=== PATIENT | male | born 1960 | race Caucasian/White ===

== ENCOUNTER 2018-08-02 08:34 | Inpatient (IN) | payer OTHER, SELFPAY ==
[2018-07-25 13:56] VITALS: BMI 33.0
[2018-08-02] VITALS (29 sets, daily range): BP systolic 114–156; BP diastolic 54–105; PULSE 75–89; RESP 9–22; TEMP 36.2–37.3; O2SAT 91–98; BMI 33.4
--- NOTE | 2018-08-02 | DI.RAD.S_ITS ---
PROCEDURE: XR LUMBAR SPINE 2-3V INDICATIONS: L5-S1 HARDWARE INSERTION TECHNIQUE: 2 views of the lumbar spine were acquired. COMPARISON: None. FINDINGS: Bones: L5-S1 bilateral transverse screws and vertical fixation rods are present with interbody disc cage prosthesis centrally positioned at L5-S1 also. Soft tissues: Overlying bowel gas pattern is normal. No suspicious soft tissue calcifications. IMPRESSION: Normal alignment established after posterior fusion and interbody disc listhesis placement L5-S1. Dictated by: Fabian Pringle M.D. on 08/02/2018 at 13:57 Approved by: Fabian Pringle M.D. on 08/02/2018 at 13:57
[2018-08-02] MEDS: LACTATED RINGERS 1,000 ML 42 ML IV ×2 (09:30→12:26)
--- NOTE | 2018-08-02 09:58 | P.HP_ITS ---
History of Present Illness Date Patient Seen: 08/02/18 Time Patient Seen: 09:53 Chief complaint: [id number] Narrative: 58-year-old male with low back and right leg pain. He has a history of lumbar laminectomy in 2007 and 2009. He was lifting a file cabinet in October of 2017 and all the symptoms return. He has been through physical therapy as well as epidural steroid injection and chronic pain medication. Recently his pain has been going up so much that he switch from Vicodin over to Percocet. Pain in the leg is in the right buttock and posterior thigh. Constant numbness in the lateral leg and foot since from before his last surgery. 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 The buttock pain is worse than the back pain. Patient History Medical History Anxiety (Acute) Arthritis (Acute) Asthma (Acute) BPH (benign prostatic hyperplasia) (Acute) Bladder outlet obstruction (Acute ~09/2017) Chronic bronchitis (Acute) DJD (degenerative joint disease) (Acute) Depression (Acute) GERD (gastroesophageal reflux disease) (Acute) HLD (hyperlipidemia) (Acute) HTN (hypertension) (Acute) Hiatal hernia (Acute ~1993) Insomnia (Acute) HARLAN on CPAP (Acute) Paralysis, diaphragm (Acute ~1993) Psoriasis (Acute) Sciatica (Acute) Testosterone deficiency (Acute) Vitamin D deficiency (Acute) Surgical History History of tonsillectomy and adenoidectomy (Acute) Hx of appendectomy (Acute) Hx of bilateral inguinal hernia repair (Acute ~2016) Hx of laminectomy (Acute) Hx of transurethral resection of prostate (Acute ~2016) Social History household members: spouse and children Smoking Status: Never smoker alcohol intake: current Family & Social History Social History: household members spouse,children Prior Living Arrangements House Safety & Behavioral: Feels Safe in Current Yes Environment Been Physically Hurt or No Threatened By a Person Suicidal Ideation Description None Suicide Plan Description No Plan Tobacco & Substance use: Smoking Status Never smoker alcohol intake current alcohol intake frequency a few times a week Substance Use Type does not use Meds Home Medications Medication Instructions Recorded Confirmed Type albuterol sulfate 2 puff INHALATION QID PRN 07/25/18 08/02/18 History alprazolam 0.25 mg PO DAILY PRN 07/25/18 08/02/18 History amlodipine 10 mg PO BEDTIME 07/25/18 08/02/18 History atorvastatin 40 mg PO BEDTIME 07/25/18 08/02/18 History budesonide-formoterol [Symbicort] 2 puff INHALATION PRN PRN 07/25/18 08/02/18 History bupropion HCl 150 mg PO BID 07/25/18 08/02/18 History cholecalciferol (vitamin D3) 50,000 unit PO DAILY 07/25/18 08/02/18 History [Vitamin D3] clonidine HCl 0.1 mg PO BID 07/25/18 08/02/18 History gabapentin 300 mg PO TID 07/25/18 08/02/18 History hydrocodone-acetaminophen 2 tab PO Q4-6H PRN 07/25/18 08/02/18 History ibuprofen 600 mg PO BID-TID PRN 07/25/18 08/02/18 History losartan 100 mg PO DAILY 07/25/18 08/02/18 History meloxicam 15 mg PO DAILY 07/25/18 08/02/18 History omeprazole 40 mg PO BID 07/25/18 08/02/18 History tamsulosin 0.4 mg PO BEDTIME 07/25/18 08/02/18 History zolpidem 10 mg PO BEDTIME PRN 07/25/18 08/02/18 History Allergies Allergy/AdvReac Type Severity Reaction Status Date / Time Sulfa (Sulfonamide Allergy Intermediate Hives Verified 07/25/18 14:05 Antibiotics) levofloxacin [From Levaquin] AdvReac Severe Heart Verified 07/25/18 14:05 racing, chest pain prochlorperazine AdvReac Severe Makes me Verified 07/25/18 14:05 [From Compazine] feel like I want to jump out of my skin promethazine [From Phenergan] AdvReac Severe Makes me Verified 07/25/18 14:05 feel like I want to jump out of my skin Review of Systems Cardiovascular Cardiovascular: Denies chest pain Respiratory Respiratory: Denies cough Exam Vital Signs (past 8 hours): - 08/02/18 09:04 Temperature 97.2 F L Pulse Rate 80 Respiratory Rate 15 Blood Pressure 137/91 H Pulse Oximetry 97 Oxygen Delivery Method Room Air Const Orientation: alert and oriented x3 Resp Auscultation: clear to auscultation bilaterally Cardio Rate: regular rate Rhythm: regular rhythm Back/Spine/Pelvis Other: Well-healed incision. 5/5 motor both lower extremities. Decreased sensation lateral right leg and foot. Positive straight leg raise maneuver on the right. Tender in the bilateral lumbar paraspinals and right gluteals. Objective Imaging Lumbar MRI: My impression: Lumbar MRI from 11/25/2017 shows open laminectomy at L4-5. L5-S1 has a previous right-sided laminectomy. Small foraminal disc bulge with moderate to severe right and moderate left foraminal stenosis. Assessment & Plan Assessment & Plan narrative: Lumbar stenosis with radiculopathy with a history of previous laminectomy. He has failed conservative management and we are taking him to the operating room today for revision foraminotomy at L5-S1 on the right with instrumented fusion. All questions have been answered. Risks and benefits have been discussed and appropriate consent obtained.
--- NOTE | 2018-08-02 09:58 | PM.PREOP ---
Pre-operative Note Interval Note History & Physical reviewed/Exam performed by Physician: Yes Changes to H&P: No
[2018-08-02] MEDS: CEFAZOLIN 2 GM/100 ML FROZ.PIGGY IV ×2 (10:27→17:57)
--- NOTE | 2018-08-02 11:13 | SUR.OPER ---
Prone on spine table, head in foam head support, padded chest and pelvic supports, gel pad at knees, lower legs supported by pillows; nipples, genitalia and toes free of pressure, arms secured on foam padded arm boards at <90 degrees abduction. Tape over blanket at thigh secured to table.
[2018-08-02] MEDS: VANCOMYCIN 1,000 MG VIAL 1000 MG TOP (11:19)
[2018-08-02] MEDS: SODIUM CHLORIDE 0.9% 1,000 ML, GENTAMICIN 80 MG IRR (11:20)
[2018-08-02] MEDS: BUPIVACAINE 0.5% (PF) 4 ML, MORPHINE-PF 4 MG, BUTORPHANOL 1 MG, fentaNYL 100 MCG INJ (11:20)
[2018-08-02] MEDS: THROMBIN (RECOMBINANT) 5,000 UNIT VIAL 5000 UNIT TOP (11:20)
--- NOTE | 2018-08-02 12:59 | P.OP_ITS ---
Operative Date/Time/Diagnoses Date of procedure: 08/02/18 Time of procedure: 12:55 Pre-op diagnosis: Lumbar stenosis with radiculopathy History of lumbar laminectomy Post-op diagnosis: same Procedure & Clinicians Procedure: L5S1 TLIF (post/post innerbody fusion) with cage L5 and S1 screws Iliac crest bone graft aspirate. Revision laminotomy L5-S1 Use of microscope Placement of epidural catheter Same procedure as scheduled: Yes Indications: [age] year old male with intractable pain from stenosis. They had failed conservative management and requested operative intervention. Risks and benefits of surgery were discussed and appropriate consents were obtained. Surgeon: Jose Elias Kingsley Immigration Consultant: Baylee Dalal Anesthesia Type: General Operative Notes Findings: None Closure Type: primary Specimen(s): none sent Prosthetic devices, grafts, tissues, transplants, or devices: NuVasive MAS Reli ne screws Globus Rise cage Applied: catheter Estimated Blood Loss (mL): 20 Blood products transfused: none Procedure in detail: The patient was brought to the operating room and intubated on the table. A time-out was performed. They were then rolled over to the well- padded Lalo table in the prone position. Preoperative antibiotics were given. The back was prepped and draped in the standard sterile fashion. Using fluoroscopy, a 4 cm longitudinal incision was made to the well-marked right of the midline. We used Bovie to come down to and split the lumbodorsal fascia. Using fluoroscopy and monitoring, we then percutaneously placed Jamshidi needles down the pedicles of L5 and S1 on the right side. These were changed out to guidewires and then we tapped and then placed the NuVasive MAS Reline screw shanks. We then opened up the retractors and used Bovie to clear up the posterolateral gutter as well as medially along the lamina to the scar tissue from the previous laminotomy site. A bur was used to decorticate the transverse process and sacral ala. We brought in the microscope. We carefully cleared the scar tissue away from the bone using a curette. Using a combination of bur and Kerrison rongeurs, a revision laminotomy was performed from the right side at L5-S1. We exposed the central medial canal as well as completely freed up the neural foramen using osteotomes for a facetectomy. This was separate and distinct than a approach for the posterior interbody fusion as this was a revision surgery through scar tissue and hence was much more complex and is a separate and distinct procedure. We then began the TLIF prep. A complete facetectomy was performed on this side at L5-S1. We carefully cleaned up the remainder of the foramen until we could easily retract the exiting root as well as clearing medially below the dura and expose the disc space. The disc was prepped with bipolar and then an annulotomy was performed. We performed a diskectomy using a combination of paddles, jose e, pituitaries, and curettes. We distracted the disc using a paddle and locked the retractor in an open position. We then filled the disc space with Osteocel bone graft. We then placed the globus Rise cage under fluoroscopy and then filled this in with more bone graft. The distraction on the retractor was released to compress down. This completed the posterior interbody fusion portion of the TLIF at L5-S1. We then placed the screw heads, ijeoma, and locked down the set screws. The wound was copiously irrigated. A small stab incision was made over the PSIS. We used a Jamshidi needle to aspirate several mL of bone marrow from the pelvis. This was mixed with the remaining Osteocel and combined with all of the locally harvested bone graft and placed in the posterolateral gutter for the posterior fusion of the TLIF at L5- S1. An epidural catheter was then placed in the spinal canal by carefully depressing the dura and advancing it 6 cm cephalad under the remaining lamina without resistance. The muscle fascia was closed. The catheter was then injected with a solution containing 4 mL of 0.5% Marcaine, 1 mg Stadol, 4 mg Duramorph, and 100 mcg of fentanyl. This was injected without resistance and the catheter was pulled. We then went to the opposite side. Again using fluoroscopy, a 3 cm incision was made and Bovie was used to come down to split the fascia. Using neural monitoring and fluoroscopy, Jamshidi needles were advanced down the pedicles of L5 and S1 on the left side. These were switched over guidewires, tapped, and screws placed. We then placed a ijeoma and locked the set screws on this side. The wound was irrigated. The fascia was closed. Vancomycin powder was placed in the wounds. The superficial and skin were closed. A sterile dressing was placed. The patient was then rolled over extubated and brought to recovery room without complications. Complications: none Condition: stable Disposition: PACU Plan for aftercare: Inpatient. Up with therapy.
[2018-08-02] MEDS: fentaNYL 100 MCG/2 ML INJ 50 MCG IV ×3 (13:37→14:00)
[2018-08-02] MEDS: HYDROMORPHONE 2 MG INJ 0.5 MG IV ×3 (13:41→13:54)
--- NOTE | 2018-08-02 14:25 | SUR.PHASEI ---
Report called to SEVERINO Murphy in ICU. Pt in stable condition, VSS. Pt laying in bed with eyes open and easily responds to voice when spoken to. IV site clear and infusing without difficultly. DRSG observed to be C/D/I. Pt being transferred to floor at this time.
--- NOTE | 2018-08-02 14:43 | SUR.PHASEI ---
pt transferred to icu in stable condition, vss. pt alert and talking to RN during transport. Bedside report given to SEVERINO Koch at that time, no change in pt condition. Transferred care of pt to DIRECTOR PATIENT at that time.
--- NOTE | 2018-08-02 15:12 | PC.NURSE ---
Postop Note Patient arrived from PACU to room 101 via bed at 1440. Pt alert and oriented x3. Oxygen sats 95% on 3L NC. Reports pain 7/10 to back. Dressing to lower back C/D/I. Reports numbness to right toes but states this was present prior to surgery, denies any new numbness. Able to move all extremities, strong pulses. Taking in ice chips without issue. Coronado catheter in place and draining clear yellow urine. Family at bedside. Own walker and CPAP machine in room. Oriented to room and to call light/bed/tv controls. Call light within reach.
[2018-08-02] MEDS: ACETAMINOPHEN 325 MG TABLET 650 MG PO ×2 (15:36→22:26)
[2018-08-02] MEDS: OXYCODONE IR 5 MG TABLET 10 MG PO ×3 (15:36→22:26)
[2018-08-02] MEDS: GABAPENTIN 300 MG CAPSULE PO ×2 (15:37→21:25)
[2018-08-02] MEDS: LACTATED RINGERS 1,000 ML 125 ML IV ×2 (15:39→22:27)
--- NOTE | 2018-08-02 17:16 | PC.NURSE ---
1700 - Pt reports pain 6 of 10, agreeable to attempt to dangle. Educated to spinal precautions. Pt moving well, Able to stand at bedside. Denies lightheadedness or dizziness. Returned to bed and set up for meal. Call light in reach.
[2018-08-02] MEDS: DOCUSATE 100 MG CAPSULE PO (21:25)
[2018-08-02] MEDS: ATORVASTATIN 20 MG TABLET 40 MG PO (21:25)
[2018-08-02] MEDS: SENNOSIDES 8.6 MG TABLET 17.2 MG PO (21:25)
[2018-08-02] MEDS: cloNIDine 0.1 MG TABLET PO (21:26)
[2018-08-02] MEDS: AMLODIPINE 5 MG TABLET 10 MG PO (21:26)
[2018-08-02] MEDS: PANTOPRAZOLE 40 MG TABLET PO (21:26)
[2018-08-02] MEDS: buPROPion SR 150 MG TAB PO (21:26)
[2018-08-02] MEDS: TAMSULOSIN 0.4 MG CAPSULE PO (21:26)
[2018-08-02] MEDS: hydrOXYzine pamoate 25 MG CAPSULE PO (22:26)
[2018-08-03] VITALS (9 sets, daily range): BP systolic 112–119; BP diastolic 58–74; PULSE 75–82; RESP 16–18; TEMP 36.8–37.3; O2SAT 94–98
[2018-08-03] MEDS: CEFAZOLIN 2 GM/100 ML FROZ.PIGGY IV (01:42)
[2018-08-03] MEDS: OXYCODONE IR 5 MG TABLET 10 MG PO ×6 (03:12→20:47)
[2018-08-03] MEDS: diphenhydrAMINE 25 MG TABLET PO (03:12)
[2018-08-03] MEDS: ALPRAZolam 0.25 MG TABLET PO (03:12)
[2018-08-03 04:47] LABS: Hematocrit 42.1 % (41-53); Hemoglobin 14.1 g/dL (13.5-17.5)
[2018-08-03] MEDS: PANTOPRAZOLE 40 MG TABLET PO ×2 (06:10→20:50)
[2018-08-03] MEDS: SODIUM CHLORIDE 0.9% FLUSH 10 ML IV ×2 (06:10→20:51)
--- NOTE | 2018-08-03 08:24 | PM.PNPO.1 ---
Subjective Date Patient Seen: 08/03/18 Time Patient Seen: 08:24 Interval history: He is doing well. Pain is 5/10 across the back. No leg pain. Still some residual numbness in the Righttoes, but they have been that way for years. Exam Vital Signs (past 8 hours): - 08/03/18 03:00 08/03/18 03:26 08/03/18 07:00 Temperature 99.1 F 98.6 F Pulse Rate 75 75 Respiratory Rate 18 16 Blood Pressure 115/58 L 112/73 Pulse Oximetry 95 95 Oxygen Delivery Method Room Air Oxygen Flow Rate 0 Const Orientation: alert and oriented x3 Back/Spine/Pelvis Other: mild drainage. 5/5 motor both lower extremities. Objective Labs Result Diagrams: 08/03/18 04:32 Labs: Laboratory Results - last 24 hr 08/02/18 08/03/18 14:40 04:32 Hgb 14.1 Hct 42.1 Nasal Screen MRSA (PCR) Negative for mrsa Assessment & Plan Post-op Postoperative Procedures Operation Date: 08/02/18 10:15 Actual Procedures Side Surgeon p L5-S1 revision discectomy & intru fusion (TLIF) w/bone graft Right Jose Elias Kingsley MD he is doing well. Mobilize today with physical therapy. Anticipate discharge home tomorrow. Quality VTE Deep Vein Thrombosis/Pulmonary Embolism Present on Admission: No
[2018-08-03] MEDS: buPROPion SR 150 MG TAB PO ×2 (09:09→20:49)
[2018-08-03] MEDS: cloNIDine 0.1 MG TABLET PO ×2 (09:09→20:49)
[2018-08-03] MEDS: LOSARTAN 50 MG TABLET 100 MG PO (09:10)
[2018-08-03] MEDS: hydrOXYzine pamoate 25 MG CAPSULE PO ×3 (09:11→20:48)
[2018-08-03] MEDS: GABAPENTIN 300 MG CAPSULE PO ×3 (09:11→20:50)
[2018-08-03] MEDS: MELOXICAM 7.5 MG TABLET 15 MG PO (09:11)
[2018-08-03] MEDS: DOCUSATE 100 MG CAPSULE PO ×2 (09:11→20:50)
[2018-08-03] MEDS: ERGOCALCIFEROL (VITAMIN D2) 50,000 UNIT CAPSULE 50000 UNIT PO (09:12)
--- NOTE | 2018-08-03 09:12 | CM.DANOTE ---
DCP: Case received, EMR reviewed and met with patient. Introduced self and role. Was able to retrieve baseline information from patient regarding his baseline health. DCP template assessment completed with information currently available. Patient is a 58 year old male who admitted yesterday morning to the care of the surgical team. Payer: confirmed: Pramod Luciano. PCP: Dr. Caleb Huizar, [facility]. Patient came to hospital for surgical procedure. Patient had lumbar laminectomy, L5-S1 post interbody fusion. Patient has had chronic back problems. 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 He stated that he has had back surgeries before. He resides in [facility] with his spouse, Pawel. He has not yet worked with the physical therapy team. P: DCP to continue to follow. Will collaborate with the physical therapy team to see how he does. He should be able to go home when he is medically stable and cleared by the therapy team. Lianet Katz RN/Clinical Radiologist
--- NOTE | 2018-08-03 10:47 | PC.NURSE ---
Transfer Note Patient transferred to room 212 at 1025 via wheelchair. All belongings with patient including glasses and own CPAP machine. Report given to Lisa HAQ. Patient left sitting up in chair with call light in reach.
--- NOTE | 2018-08-03 10:53 | PT.IIE ---
Current Diagnoses Spinal stenosis, lumbar region with neurogenic claudication (08/02/18) Other specified postprocedural states (08/02/18) Surgery Performed Operation Date: 08/02/18 10:15 Actual Procedures p L5-S1 revision discectomy & intru fusion (TLIF) w/bone graft(Right) - Jose Elias Kingsley MD Surgical History (Last Reviewed 08/02/18 @ 09:55 by Jose Elias Kingsley MD) History of tonsillectomy and adenoidectomy (Acute) Hx of appendectomy (Acute) Hx of bilateral inguinal hernia repair (Acute ~2017) Hx of laminectomy (Acute) Hx of transurethral resection of prostate (Acute ~2017) Medical History (Last Reviewed 08/02/18 @ 09:55 by Jose Elias Kingsley MD) Anxiety (Acute) Arthritis (Acute) Asthma (Acute) BPH (benign prostatic hyperplasia) (Acute) Bladder outlet obstruction (Acute ~09/2017) Chronic bronchitis (Acute) DJD (degenerative joint disease) (Acute) Depression (Acute) GERD (gastroesophageal reflux disease) (Acute) HLD (hyperlipidemia) (Acute) HTN (hypertension) (Acute) Hiatal hernia (Acute ~1993) Insomnia (Acute) HARLAN on CPAP (Acute) Paralysis, diaphragm (Acute ~1993) Psoriasis (Acute) Sciatica (Acute) Testosterone deficiency (Acute) Vitamin D deficiency (Acute) Physical Therapy Inpatient Evaluation/Re-Eval M1 PT/OT-IP Prior Functional Status Start: 08/03/18 12:00 Freq: NEEDED Status: Active Protocol: Document 08/03/18 10:53 AB (Rec: 08/03/18 12:10 AB [id number]) Medical Review Prior Functional Status Medical History Reviewed Yes Communication able to make needs known Mobility and Gait pt stated that he is independent with all mobilities and ambulation without AD Social History Household Members spouse family children Living Arrangements House Number of Floors (Floors) Two Floors Number of Stairs To Enter/Railing? 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 PT-IP Current Condition Start: 08/03/18 12:00 Freq: NEEDED Status: Active Protocol: Document 08/03/18 10:53 AB (Rec: 08/03/18 12:10 AB [id number]) Physical Therapy Current Condition Current Condition Evaluation Date 08/03/18 Treatment Diagnosis s/p L5S1 TLIF/revision laminotomy; difficulty in walking Onset Date 08/02/18 Precautions Lumbar Precautions Log Roll No Twisting Limit Bending Lifting Restriction of 10 lbs Gait Belt above Incisional Area M3 PT-IP Subjective Start: 08/03/18 12:00 Freq: NEEDED Status: Active Protocol: Document 08/03/18 10:53 AB (Rec: 08/03/18 12:10 AB [id number]) Subjective Physical Therapy Visit Type Type Initial Evaluation Visit Start Time 10:53 Visit Stop Time 11:30 Total Visit Minutes 37 Number of COMMERCIAL COUNSEL Visits 0 Physical Therapy Visit Comments Patient Comments pt agreeable to do PT Therapy Pain Assessment Pain When Pain Assessed At Rest Pain Present Pain Present Pain Reported Location Back Intensity 9 Scale Used Numeric (1 - 10) Pain Management Techniques Apply Cold Timing of Activity with Medications M4 PT-IP Mobility and Gait Start: 08/03/18 12:00 Freq: NEEDED Status: Active Protocol: Document 08/03/18 10:53 AB (Rec: 08/03/18 12:10 AB [id number]) PT-Bed Mobility Assessment Rolling Type of Rolling Log Rolling Level of Assist Standby Assistance Supine to Sit Supine to Sit Standby Assistance Sit to Supine Sit to Supine Standby Assistance Scooting Scooting to Edge of Bed Standby Assistance PT-Transfer Assessment Sit to and From Stand Sit to and from Stand Minimal Assistance 1 Person Assistance Use of Upper Extremities Equipment Transfer Assistive Device Gait Belt Front Wheeled Walker Orthotic/Prosthetic Devices or Brace: No Transfers Transfer Destination Bed Transfer Technique pt ambulated using FWW Transfer Ability Level of Assist Minimal Assistance 1 Person Assistance Use of Upper Extremities Gait Assessment Gait Gait Assistance Required: Minimum Assistance 1 Person Assist Distance (Feet) 75 Able to Maintain Weight Bearing Status Yes During Gait Assistive Devices Assistive Device Gait Belt Front Wheeled Walker Orthotic/Prosthetic Devices or Brace: No Gait Deviations General Gait Pattern Decreased Stride Length Decreased Feet Clearance Factors Limiting Gait Function Factors Limiting Gait Function Decreased Activity Tolerance Decreased Sensation Decreased Strength Limited Range of Motion Pain Poor Balance PT-Balance Assessment Sitting Balance and Reactions Static Sitting Balance Ability Good Dynamic Sitting Balance Ability Good Standing Balance and Reactions Static Standing Balance Ability Fair Dynamic Standing Balance Ability Fair Device Used FWW M5 PT-IP Objective Assessments Start: 08/03/18 12:00 Freq: NEEDED Status: Active Protocol: Document 08/03/18 10:53 AB (Rec: 08/03/18 12:10 [id number]) Orientation Orientation/Cognition Level of Alertness Alert Orientation Name Age Birthday Month Date Year Day of Week Place Situation Language Function Ability No Deficits Noted Safety Awareness Understands Safety Issues Memory Description No Deficits Noted Gross Range of Motion Lower Extremity ROM Assessment Within Functional Limits Strength Lower Extremity Strength Assessment Bilaterally Impaired Comments Strength Comments RLE 3+/5 LLE 4-/5 Coordination Assessment Gross Coordination Gross Coordination WNL Sensation Assessment Sensation Gross Sensation Right LE Impaired Sensation Description Numbness Comments Sensation Comments c/o numbness on R 4th/5th toes : stated that numbness is chronic Muscle Tone Muscle Tone WNL Yes M6 PT-IP Treatment Start: 08/03/18 12:00 Freq: NEEDED Status: Active Protocol: Document 08/03/18 10:53 AB (Rec: 08/03/18 12:10 [id number]) Physical Therapy Treatment Education Education Provided Precautions Weight Bearing Status Post-Op Packet Safety M7 PT-IP Assessment and Plan Start: 08/03/18 12:00 Freq: NEEDED Status: Active Protocol: Document 08/03/18 10:53 AB (Rec: 08/03/18 12:10 [id number]) PT Summary Assessment and Plan Potential Rehabilitation Potential Good Status of Condition at Evaluation Stable Summary Impairments Pain ROM Strength Balance Coordination Sensation Tone Cognition Bed Mobility Transfers Gait Activity Tolerance Assessment Summary pt requiring min A with mobility. pt plans to go home and spouse will assist him. pt will likely improve during hospital stay. will conduct caregiver training if appropriate and will complete stair climbing training prior to d/c Goals Bed Mobility Goal Independent Transfer Goal Independent Front Wheeled Walker Gait Goal Standby Assistance Front Wheel Walker Gait Distance 200 Other Goals up/down 1 step using FWW SBA uup/down 10 steps using bilateral rails SBA Days to Meet Goals 5 Frequency of Treatment Frequency Of Treatment Twice a Day Treatment Plan Physical Therapy Treatment Plan Bed Mobility Training Transfer Training Gait Training Therapeutic Exercise Balance Retraining Post Op Education Discharge Planning Hot or Cold Pack Neuromuscular Re-ed Coordination Retraining Manual Therapy Recommendations To Nursing Amount of Assist Needed 1 Person Assist Discharge Recommendations PT Discharge Recommendations Home with Assistance
--- NOTE | 2018-08-03 12:03 | PC.NURSE ---
1020 Pt ,arrived from ICU via w/c. Pt assisted minimally to recliner chair. Denies pain, on r/a 97%. call light in reach. No c/o.
--- NOTE | 2018-08-03 12:15 | OT.IP.EVAL ---
Current Diagnoses Spinal stenosis, lumbar region with neurogenic claudication (08/02/18) Other specified postprocedural states (08/02/18) Surgery Performed Operation Date: 08/02/18 10:15 Actual Procedures p L5-S1 revision discectomy & intru fusion (TLIF) w/bone graft(Right) - Jose Elias Kingsley MD Past Medical History (Last Reviewed 08/02/18 @ 09:55 by Jose Elias Kingsley MD) Anxiety (Acute) Arthritis (Acute) Asthma (Acute) BPH (benign prostatic hyperplasia) (Acute) Bladder outlet obstruction (Acute ~09/2017) Chronic bronchitis (Acute) DJD (degenerative joint disease) (Acute) Depression (Acute) GERD (gastroesophageal reflux disease) (Acute) HLD (hyperlipidemia) (Acute) HTN (hypertension) (Acute) Hiatal hernia (Acute ~1993) Insomnia (Acute) HARLAN on CPAP (Acute) Paralysis, diaphragm (Acute ~1993) Psoriasis (Acute) Sciatica (Acute) Testosterone deficiency (Acute) Vitamin D deficiency (Acute) Surgical History (Last Reviewed 08/02/18 @ 09:55 by Jose Elias Kingsley MD) History of tonsillectomy and adenoidectomy (Acute) Hx of appendectomy (Acute) Hx of bilateral inguinal hernia repair (Acute ~2016) Hx of laminectomy (Acute) Hx of transurethral resection of prostate (Acute ~2016) Occupational Therapy Inpatient Evaluation/Re-Eval M1 PT/OT-IP Prior Functional Status Start: 08/03/18 12:00 Freq: NEEDED Status: Active Protocol: Document 08/03/18 12:15 JOSEPH (Rec: 08/03/18 15:35 ZEE [id number]) Medical Review Prior Functional Status Medical History Reviewed Yes Diet/Fluid Consistency Regular Communication WNL Mobility and Gait Pt states he is independent with all mobility and ambulation without AD. 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 Activities of Daily Living and IADL's Pt states he is independent with all self care and normally assists with acidizer, but has been unable to assist much recently due to high pain level. Social History Household Members spouse family children Living Arrangements House Number of Floors (Floors) Two Floors Number of Stairs To Enter/Railing? 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 He lives with , 4 teenage children and his mother who is essentially bedridden. His is primary caregiver for pt's mother. M2 OT-IP Current Condition Start: 08/03/18 15:22 Freq: Status: Active Protocol: Document 08/03/18 12:15 PJM (Rec: 08/03/18 15:35 [facility] [id number]) Occupational Therapy Current Condition Current Condition Evaluation Date 08/03/18 Treatment Diagnosis decreased self care, mobility s/p L5-S1 fusion Diagnosis Onset Date 08/02/18 Post Operative Precautions Lumbar Precautions Log Roll No Twisting Limit Bending Lifting Restriction of 10 lbs Gait Belt above Incisional Area M3 OT- IP Subjective and Pain Start: 08/03/18 15:22 Freq: Status: Active Protocol: Document 08/03/18 12:15 PJM (Rec: 08/03/18 15:35 [facility] [id number]) OT- Subjective Occupational Therapy Visit Type Type Initial Evaluation Visit Start Time 11:40 Visit Stop Time 12:15 Total Visit Minutes 35 Occupational Therapy Visit Comments Patient/Caregiver Goals to go home, to have less back pain during daily activity and go back to work when MD approves OT Pain Assessment Pain When Pain Assessed After Treatment Pain Present Pain Present Pain Reported Location Back Intensity 6 Scale Used Numeric (1 - 10) Description Aching Acute Pain Behaviors Guarding Management Techniques Distraction Timing of Activity with Medications M4 OT- IP ADL's Start: 08/03/18 15:22 Freq: Status: Active Protocol: Document 08/03/18 12:15 PJM (Rec: 08/03/18 15:35 [facility] [id number]) OT [id number] General Evaluation Self-Feeding Ability Independent OT ADL-Grooming Comments OT Grooming Comments did not occur this session OT ADL-Dressing General Eval Lower Body Dressing Ability Maximum Assistance Areas Needing Assistance Pants/Shorts Socks Shoes Assistive Devices Dressing Assistive Devices Long Handled Shoe Horn Insurance Healthcare Representative Sock Aid Comments OT Dressing Comments Began education re: use of derrick follower , sock aid, long shoe horn for lower body dressing. Pt plans to order equipt on line. OT ADL-Toileting General Evaluation Toileting Ability Total Assistance Areas Needing Assistance Empty Catheter or Colostomy Devices Toileting Assistive Devices Toilet Paper Aid Comments OT Toileting Comments patel still in place, provided education re: toilet paper aids and resources OT ADL-Bathing Comments OT Bathing Comments provided education re: precautions, body mechanics, pt can borrow shower seat and has long bath sponge M5 OT- IP IADL's Start: 08/03/18 15:22 Freq: Status: Active Protocol: Document 08/03/18 12:15 PJM (Rec: 08/03/18 15:35 [facility] [id number]) OT-Instrumental Activities of Daily Living Deficits IADL Deficits Identified Deficits Home Safety Awareness Awareness of Need for Assistance at Home Good Awareness Ability to Problem Solve Emergency Able to Problem Solve Situations Medication Management Medication Management No Deficits Identified Money Management Money Management No Deficits Identified Meal Preparation Meal Preparation Caregiver Provides Assist Meal Preparation Comments to assist until pt able Resaw Feeder Resaw Feeder Caregiver Provides Assist Resaw Feeder Comments to assist until pt able Driving Driving Caregiver Provides Assist Driving Comments to assist until pt able M6 OT- IP Functional Cognition Start: 08/03/18 15:22 Freq: Status: Active Protocol: Document 08/03/18 12:15 PJM (Rec: 08/03/18 15:35 [facility] [id number]) Cognitive Factors Limiting Selfcare Function Cognitive Ability Level of Alertness Alert Patient Orientation Name Age Birthday Month Date Year Day of Week Place Situation Attention Span Ability Capable of Focused Attention Capable of Sustained Attention Ability to Follow Commands Able to Follow One Step Commands Memory Description No Deficits Noted Safety Awareness No Deficits Noted Cognitive Comments Cognitive Assessment Comments pt appears slightly drowsy from pain meds OT- Vision and Hearing OT- Hearing Assessment OT- Hearing Assessment WFL M7 OT- IP Mobility and Balance Start: 08/03/18 15:22 Freq: Status: Active Protocol: Document 08/03/18 12:15 PJM (Rec: 08/03/18 15:35 [facility] [id number]) OT-Transfer Assessment Comments Mobility Comments pt seen up in chair this session, see P.T. notes OT- Gait Assessment Comments Gait Ability Comments see P.T. notes OT- Balance Assessment Comments Other Balance Tests/Deviations/Treatment see P.T. notes : M8 OT- IP Objective Assessments Start: 05/29/19 15:22 Freq: Status: Active Protocol: Document 08/03/18 12:15 PJM (Rec: 08/03/18 15:35 PJM [id number]) OT Gross Range of Motion Upper Extremity Range of Motion Assessment Within Functional Limits OT Strength Upper Extremity Strength Assessment Within Functional Limits Hand Deposit Refund Clerk Strength Hand Dominance Right OT- Coordination Assessment Comments Coordination Comments BUE WFL OT-Muscle Tone Assessment Muscle Tone WNL Yes OT Sensation Assessment Comments Summary Comments BUE WNL per pt M9 OT- IP Assessment and Plan Start: 08/03/18 15:22 Freq: Status: Active Protocol: Document 08/03/18 12:15 PJM (Rec: 08/03/18 15:35 PJM [id number]) OT Summary Assessment and Plan Potential Rehabilitation Potential Good Analytic Complexity at Evaluation Low Summary OT Impairments Pain Functional Mobility Grooming Dressing Toileting Bathing Toilet Transfers Shower Transfers Assessment Summary Low complexity OT assessment completed with emphasis on lumbar spine precautions. Began education re: precautions, body mechanics, posture, optimal chair selection and adapted ADL techniques and equipment options. Pt currently has mild performance deficits in activity tolerance, functional mobility/transfers, standing grooming, lower body dressing, bathing and toileting. Plan 1-2 additional OT visits to address the goals below. Pt plans to d/c home where is available to assist PRN. Goals Grooming Goal Independent Dressing Goal Independent Long Handled Shoe Horn Insurance Healthcare Representative Sock Aid Toileting Goal Independent Toilet Paper Aid Bathing Goal Standby Assistance Toilet Transfer Goal Independent Shower Transfer Goal Standby Assistance Patient/Caregiver Education Goal Demonstrate Post-Op Precautions Demonstrate Energy Conservation and Pacing Caregiver Independent Assisting Patient OT-Other Goals Grooming to be done standing with good body mechanics. Days to Meet Goals 2 Frequency of Treatment Frequency Of Treatment Once a Day Treatment Plan OT Treatment Plan ADL Training Functional Mobility Patient/Family Education Discharge Planning Discharge Recommendations OT Discharge Recommendations Home with / Assist Home Equipment Needs derrick follower, sock aid, toilet paper aid
--- NOTE | 2018-08-03 15:50 | PT.IPTN ---
Current Diagnoses Spinal stenosis, lumbar region with neurogenic claudication (08/02/18) Other specified postprocedural states (08/02/18) Surgery Performed Operation Date: 08/02/18 10:15 Actual Procedures p L5-S1 revision discectomy & intru fusion (TLIF) w/bone graft(Right) - Jose Elias Kingsley MD Physical Therapy Treatment Note M2 PT-IP Current Condition Start: 08/03/18 12:00 Freq: NEEDED Status: Active Protocol: Document 08/03/18 10:53 AB (Rec: 08/03/18 12:10 AB [id number]) Physical Therapy Current Condition Current Condition Evaluation Date 08/03/18 Treatment Diagnosis s/p L5S1 TLIF/revision laminotomy; difficulty in walking Onset Date 08/02/18 Precautions Lumbar Precautions Log Roll No Twisting Limit Bending Lifting Restriction of 10 lbs Gait Belt above Incisional Area M3 PT-IP Subjective Start: 08/03/18 12:00 Freq: NEEDED Status: Active Protocol: Document 08/03/18 15:50 GGD (Rec: 08/03/18 16:31 GGD [id number]) Subjective Physical Therapy Visit Type Type Treatment Note Visit Start Time 15:30 Visit Stop Time 15:50 Total Visit Minutes 20 Number of PHYSICAL THERAPY NURSE Visits 1 Physical Therapy Visit Comments Patient Comments Pt willing to work with PT. Therapy Pain Assessment Pain When Pain Assessed At Rest Pain Present Pain Present Pain Reported Location Back Intensity 5 Scale Used Numeric (1 - 10) Pain Management Techniques Apply Cold Timing of Activity with Medications M4 PT-IP Mobility and Gait Start: 08/03/18 12:00 Freq: NEEDED Status: Active Protocol: Document 08/03/18 15:50 GGD (Rec: 08/03/18 16:31 GGD [id number]) PT-Bed Mobility Assessment Rolling Type of Rolling Log Rolling Level of Assist Standby Assistance Supine to Sit Supine to Sit Contact Guard Assistance Sit to Supine Sit to Supine Standby Assistance Scooting Scooting to Edge of Bed Standby Assistance PT-Transfer Assessment Sit to and From Stand Sit to and from Stand Contact Guard Assistance 1 Person Assistance Use of Upper Extremities Equipment Transfer Assistive Device Gait Belt Front Wheeled Walker Orthotic/Prosthetic Devices or Brace: No Transfers Transfer Destination Bed Transfer Ability Level of Assist Minimal Assistance 1 Person Assistance Use of Upper Extremities Gait Assessment Gait Gait Assistance Required: Contact Guard Assist 1 Person Assist Distance (Feet) 220 Able to Maintain Weight Bearing Status Yes During Gait Assistive Devices Assistive Device Gait Belt Front Wheeled Walker Orthotic/Prosthetic Devices or Brace: No Gait Deviations General Gait Pattern Decreased Stride Length Decreased Feet Clearance Factors Limiting Gait Function Factors Limiting Gait Function Decreased Activity Tolerance Decreased Sensation Decreased Strength Limited Range of Motion Pain Poor Balance Stair Climbing Assessment Evaluation Level of Assist On Stairs Contact Guard Assistance Devices Stair Climbing Assistive Devices None Left Railing Right Railing Technique/Endurance Stair Climbing Direction Ascend and Descend Stair Climbing Technique Step to Step Number of Steps Climbed 3 Query Text: Stair Climbing Set # Repetitions (reps) 2 Comments Stair Climbing Comments Pt ambulated 1 step with FWW with CGA and then 3 steps x 2 with both rails with step to gait pattern with CGA. M5 PT-IP Objective Assessments Start: 08/03/18 12:00 Freq: NEEDED Status: Active Protocol: Document 08/03/18 10:53 AB (Rec: 08/03/18 12:10 AB [id number]) Orientation Orientation/Cognition Level of Alertness Alert Orientation Name Age Birthday Month Date Year Day of Week Place Situation Language Function Ability No Deficits Noted Safety Awareness Understands Safety Issues Memory Description No Deficits Noted Gross Range of Motion Lower Extremity ROM Assessment Within Functional Limits Strength Lower Extremity Strength Assessment Bilaterally Impaired Comments Strength Comments RLE 3+/5 LLE 4-/5 Coordination Assessment Gross Coordination Gross Coordination WNL Sensation Assessment Sensation Gross Sensation Right LE Impaired Sensation Description Numbness Comments Sensation Comments c/o numbness on R 4th/5th toes : stated that numbness is chronic Muscle Tone Muscle Tone WNL Yes M6 PT-IP Treatment Start: 08/03/18 12:00 Freq: NEEDED Status: Active Protocol: Document 08/03/18 15:50 GGD (Rec: 08/03/18 16:31 GGD [id number]) Physical Therapy Treatment Education Education Provided Precautions M7 PT-IP Assessment and Plan Start: 08/03/18 12:00 Freq: NEEDED Status: Active Protocol: Document 08/03/18 15:50 GGD (Rec: 08/03/18 16:31 GGD [id number]) PT Summary Assessment and Plan Summary Assessment Summary Pt improving with mobility. He was able to progress gait distance. He was safe with stair mobility needing min cues. He need cues for full log roll with bed mobility. Pt safe for home D/C when medically stable. Frequency of Treatment Frequency Of Treatment Twice a Day Treatment Plan Physical Therapy Treatment Plan Bed Mobility Training Transfer Training Gait Training Therapeutic Exercise Balance Retraining Post Op Education Discharge Planning Hot or Cold Pack Neuromuscular Re-ed Coordination Retraining Manual Therapy Recommendations To Nursing Amount of Assist Needed 1 Person Assist Discharge Recommendations PT Discharge Recommendations Home with Assistance
[2018-08-03] MEDS: ACETAMINOPHEN 325 MG TABLET 650 MG PO (16:35)
[2018-08-03] MEDS: MAGNESIUM HYDROXIDE 30 ML UDC PO (16:36)
--- NOTE | 2018-08-03 17:12 | PC.NURSE ---
Addendum entered by Erika Guerrero R.N. 08/03/18 22:55: Pt's cpap set up for sleep for pt. Addendum entered by Erika Guerrero R.N. 08/03/18 22:48: Log rolls onto right side to manage pain 8/10. Ice placed to pt's incision to back and pillow between legs. Meds as per emar. Pt reports pain 5/10 following administration of meds. Log rolls self onto back for sleep. BL foot pumps in place. No change in pt's dressing to back. Able to move all extremities independently. Original Note: Pt awake, alert in bed. Completed P.T. @ beginning of shift. Pt rates back incisional pain 8/10. Given meds as per emar. Admits to full sensation to BL LE's. BL foot pumps in place. Palpable pedal pulses BL. Denies nausea. Given bowel meds as requested by pt. Pt observes log rolling with turning in bed. Right lateral aspect of dressing to central lower back saturated with serosang drainage contained within tegaderm. [place] catheter with brisk urinary output.
[2018-08-03] MEDS: ATORVASTATIN 20 MG TABLET 40 MG PO (20:48)
[2018-08-03] MEDS: AMLODIPINE 5 MG TABLET 10 MG PO (20:49)
[2018-08-03] MEDS: SENNOSIDES 8.6 MG TABLET 17.2 MG PO (20:50)
[2018-08-03] MEDS: TAMSULOSIN 0.4 MG CAPSULE PO (20:51)
[2018-08-04] MEDS: ACETAMINOPHEN 325 MG TABLET 650 MG PO (00:04)
[2018-08-04] MEDS: OXYCODONE IR 5 MG TABLET 10 MG PO ×5 (00:05→13:16)
[2018-08-04 00:35] VITALS: BP 110/68; PULSE 76; RESP 15; TEMP 36.8; O2SAT 96
[2018-08-04] MEDS: hydrOXYzine pamoate 25 MG CAPSULE PO (03:34)
[2018-08-04 05:54] VITALS: BP 107/65; PULSE 75; RESP 16; TEMP 36.6; O2SAT 96
[2018-08-04] MEDS: PANTOPRAZOLE 40 MG TABLET PO (06:38)
--- NOTE | 2018-08-04 07:35 | PM.PNPO.1 ---
Subjective Date Patient Seen: 08/04/18 Time Patient Seen: 07:35 Interval history: Having more pain in the back. About 7/10. Legs are doing well. Exam Vital Signs (past 8 hours): - 08/03/18 23:45 08/04/18 00:35 08/04/18 05:54 Temperature 98.2 F 97.8 F Pulse Rate 76 75 Respiratory Rate 15 16 Blood Pressure 110/68 107/65 Pulse Oximetry 98 96 96 Oxygen Delivery Method Room Air Oxygen Flow Rate 0 Const Orientation: alert and oriented x3 Back/Spine/Pelvis Other: Mild drainage. 5/5 motor both lower extremities Objective Labs Result Diagrams: 08/03/18 04:32 Assessment & Plan Post-op Postoperative Procedures Operation Date: 08/02/18 10:15 Actual Procedures Side Surgeon p L5-S1 revision discectomy & intru fusion (TLIF) w/bone graft Right Jose Elias Kingsley MD His epidural has worn off and he is having increasing pain. We continued to work with pain control and physical therapy. Anticipate discharge probable tomorrow Quality VTE Deep Vein Thrombosis/Pulmonary Embolism Present on Admission: No
[2018-08-04 08:00] VITALS: BP 113/86; PULSE 64; RESP 16; TEMP 36.6; O2SAT 96
--- NOTE | 2018-08-04 09:56 | OT.IP.TRT ---
Current Diagnoses Spinal stenosis, lumbar region with neurogenic claudication (08/02/18) Other specified postprocedural states (08/02/18) Surgery Performed Operation Date: 08/02/18 10:15 Actual Procedures p L5-S1 revision discectomy & intru fusion (TLIF) w/bone graft(Right) - Jose Elias Kingsley MD Occupational Therapy Treatment Note M2 OT-IP Current Condition Start: 08/03/18 15:22 Freq: Status: Active Protocol: Document 08/03/18 12:15 PJM (Rec: 08/03/18 15:35 PJM [email or web address]) Occupational Therapy Current Condition Current Condition Evaluation Date 08/03/18 Treatment Diagnosis decreased self care, mobility s/p L5-S1 fusion Diagnosis Onset Date 08/02/18 Post Operative Precautions Lumbar Precautions Log Roll No Twisting Limit Bending Lifting Restriction of 10 lbs Gait Belt above Incisional Area M3 OT- IP Subjective and Pain Start: 08/03/18 15:22 Freq: Status: Active Protocol: Document 08/04/18 09:56 PJM (Rec: 08/04/18 13:21 PJM [id number]) OT- Subjective Occupational Therapy Visit Type Type Treatment Note Visit Start Time 09:18 Visit Stop Time 09:56 Total Visit Minutes 38 Notes Pt's here for education this session. Pt just finished with P.T. when this therapist arrived. Occupational Therapy Visit Comments Patient Comments I got some sleep last night. Patient/Caregiver Goals to have less pain, feel well enough to go home OT Pain Assessment Pain When Pain Assessed After Treatment Pain Present Pain Present Pain Reported Location Back Intensity 8 Scale Used RN in to give pain meds at end of session Description Aching Acute Pain Behaviors Guarding Management Techniques Apply Cold Distraction Re-positioning Timing of Activity with Medications M4 OT- IP ADL's Start: 08/03/18 15:22 Freq: Status: Active Protocol: Document 08/04/18 09:56 PJM (Rec: 08/04/18 13:21 PJM [id number]) OT ADL-Grooming Comments OT Grooming Comments Provided education re: body mechanics. OT ADL-Dressing General Eval Upper Body Dressing Ability Independent Lower Body Dressing Ability Standby Assistance Minimal Assistance Areas Needing Assistance Pull-Over Shirt Underpants/Brief Pants/Shorts Socks Assistive Devices Dressing Assistive Devices Long Handled Shoe Horn Ring Conductor Sock Aid Comments OT Dressing Comments Pt SBA to don pants with poultry dressing worker and needed min assist for use of sock aid with long tube sock. Pt will order poultry dressing worker and sock aid online or have assist with socks PRN. Pt wears slip on shoes and already has long shoe horn . OT ADL-Toileting General Evaluation Areas Needing Assistance Perform Perineal Hygiene Devices Toileting Assistive Devices Toilet Paper Aid Comments OT Toileting Comments Provided further education to pt/ re: toilet paper aids, resources for obtaining one and body mechanics during jethro care. OT ADL-Bathing Comments OT Bathing Comments Pt declines to shower here. M5 OT- IP IADL's Start: 08/03/18 15:22 Freq: Status: Active Protocol: Document 08/03/18 12:15 PJM (Rec: 08/03/18 15:35 PJM [email or web address]) OT-Instrumental Activities of Daily Living Deficits IADL Deficits Identified Deficits Home Safety Awareness Awareness of Need for Assistance at Home Good Awareness Ability to Problem Solve Emergency Able to Problem Solve Situations Medication Management Medication Management No Deficits Identified Money Management Money Management No Deficits Identified Meal Preparation Meal Preparation Caregiver Provides Assist Meal Preparation Comments to assist until pt able Senior Vice President Senior Vice President Caregiver Provides Assist Senior Vice President Comments to assist until pt able Driving Driving Caregiver Provides Assist Driving Comments to assist until pt able M6 OT- IP Functional Cognition Start: 08/03/18 15:22 Freq: Status: Active Protocol: Document 08/04/18 09:56 PJM (Rec: 08/04/18 13:21 PJ [id number]) Cognitive Factors Limiting Selfcare Function Cognitive Ability Level of Alertness Alert Safety Awareness No Deficits Noted Problem Solving Ability Needs Assist to Identify Solutions Cognitive Comments Cognitive Assessment Comments Pt alert and oriented but with mildly slowed speed of processing noted likely due to narcotic pain meds. M7 OT- IP Mobility and Balance Start: 08/03/18 15:22 Freq: Status: Active Protocol: Document 08/04/18 09:56 PJM (Rec: 08/04/18 13:21 PJ [id number]) OT-Transfer Assessment Sit to and From Stand Sit to and from Stand Standby Assistance Transfers Transfer Ability Standby Assistance Technique Transfer Destination Car Chair Transfer Technique Stand Step Pivot Devices Transfer Assistive Devices Front Wheeled Walker Comments Mobility Comments Provided further education re: car transfers to pt/. OT- Balance Assessment Sitting Balance and Reactions Static Sitting Balance Ability Good Dynamic Sitting Balance Ability Good Standing Balance and Reactions Static Standing Balance Ability Good Dynamic Standing Balance Ability Good Comments Other Balance Tests/Deviations/Treatment during lower body clothing : management M9 OT- IP Assessment and Plan Start: 08/03/18 15:22 Freq: Status: Active Protocol: Document 08/04/18 09:56 PJM (Rec: 08/04/18 13:21 PJM [id number]) OT Summary Assessment and Plan Potential Rehabilitation Potential Good Summary Progress Towards Goals Safe For Discharge Goals Met Assessment Summary Pt making good progress with mobility and adapted ADL techniques. All OT goals and education completed with pt/ today. Supportive, capable will provide 24 hr assist at d/c PRN. No further OT services needed. Pt plans to d/c home as soon as he feels pain well controlled. Frequency of Treatment Frequency Of Treatment Discharge Discharge Recommendations OT Discharge Recommendations Home with 24/7 Assist Home Equipment Needs poultry dressing worker, sock aid, toilet paper aid
[2018-08-04 10:00] VITALS: BP 127/76; PULSE 77
[2018-08-04] MEDS: LOSARTAN 50 MG TABLET 100 MG PO (10:00)
[2018-08-04] MEDS: GABAPENTIN 300 MG CAPSULE PO (10:00)
[2018-08-04] MEDS: buPROPion SR 150 MG TAB PO (10:02)
[2018-08-04] MEDS: MELOXICAM 7.5 MG TABLET 15 MG PO (10:02)
[2018-08-04] MEDS: DOCUSATE 100 MG CAPSULE PO (10:02)
[2018-08-04] MEDS: SODIUM CHLORIDE 0.9% FLUSH 10 ML IV (10:06)
[2018-08-04] MEDS: MAGNESIUM HYDROXIDE 30 ML UDC PO (10:06)
--- NOTE | 2018-08-04 12:20 | PT.IPTN ---
Current Diagnoses Spinal stenosis, lumbar region with neurogenic claudication (08/02/18) Other specified postprocedural states (08/02/18) Surgery Performed Operation Date: 08/02/18 10:15 Actual Procedures p L5-S1 revision discectomy & intru fusion (TLIF) w/bone graft(Right) - Jose Elias Kingsley MD Physical Therapy Treatment Note M2 PT-IP Current Condition Start: 08/03/18 12:00 Freq: NEEDED Status: Active Protocol: Document 08/03/18 10:53 AB (Rec: 08/03/18 12:10 AB [id number]) Physical Therapy Current Condition Current Condition Evaluation Date 08/03/18 Treatment Diagnosis s/p L5S1 TLIF/revision laminotomy; difficulty in walking Onset Date 08/02/18 Precautions Lumbar Precautions Log Roll No Twisting Limit Bending Lifting Restriction of 10 lbs Gait Belt above Incisional Area M3 PT-IP Subjective Start: 08/03/18 12:00 Freq: NEEDED Status: Active Protocol: Document 08/04/18 12:10 SA (Rec: 08/04/18 12:20 SA [email or web address]) Subjective Physical Therapy Visit Type Type Treatment Note Visit Start Time 08:58 Visit Stop Time 09:23 Total Visit Minutes 25 Number of TACKER OFF Visits 2 Physical Therapy Visit Comments Patient Comments present for PT session. Patient Goals To go home. Therapy Pain Assessment Pain When Pain Assessed At Rest Pain Present Pain Present Pain Reported Location Back Intensity 6 Scale Used Numeric (1 - 10) Pain Management Techniques Apply Cold Timing of Activity with Medications M4 PT-IP Mobility and Gait Start: 08/03/18 12:00 Freq: NEEDED Status: Active Protocol: Document 08/04/18 12:10 SA (Rec: 08/04/18 12:20 SA [email or web address]) PT-Bed Mobility Assessment Rolling Type of Rolling Log Rolling Level of Assist Standby Assistance Supine to Sit Supine to Sit Contact Guard Assistance Sit to Supine Sit to Supine Standby Assistance Scooting Scooting to Edge of Bed Standby Assistance Scooting Up and Down in Bed Standby Assistance PT-Transfer Assessment Sit to and From Stand Sit to and from Stand Contact Guard Assistance Use of Upper Extremities Equipment Transfer Assistive Device Gait Belt Front Wheeled Walker Orthotic/Prosthetic Devices or Brace: No Transfers Transfer Destination Bed Chair Transfer Ability Level of Assist Contact Guard Assistance 1 Person Assistance Use of Upper Extremities Comments Mobility Comments Reveiw and practice of log roll technique for in/out of bed, 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 CGA with stand pivot txs with FWW. Gait Assessment Gait Gait Assistance Required: Standby Assistance Contact Guard Assist 1 Person Assist Distance (Feet) 220 Able to Maintain Weight Bearing Status Yes During Gait Assistive Devices Assistive Device Gait Belt Front Wheeled Walker Orthotic/Prosthetic Devices or Brace: No Gait Deviations General Gait Pattern Decreased Stride Length Decreased Feet Clearance Factors Limiting Gait Function Factors Limiting Gait Function Decreased Activity Tolerance Decreased Sensation Decreased Strength Limited Range of Motion Pain Poor Balance Comments Gait Comments Gait training in room/halls with cues for decreasing wBing through UEs and breathing. Stair Climbing Assessment Evaluation Level of Assist On Stairs Contact Guard Assistance Devices Stair Climbing Assistive Devices Left Railing Right Railing Technique/Endurance Stair Climbing Direction Ascend and Descend Stair Climbing Technique Step to Step Number of Steps Climbed 3 Query Text: Stair Climbing Set # Repetitions (reps) 2 Comments Stair Climbing Comments Pt able to ascend/descend 3 steps with B rails and SBCGA, min cues for safet technique. M5 PT-IP Objective Assessments Start: 08/03/18 12:00 Freq: NEEDED Status: Active Protocol: Document 08/03/18 10:53 AB (Rec: 08/03/18 12:10 AB [id number]) Orientation Orientation/Cognition Level of Alertness Alert Orientation Name Age Birthday Month Date Year Day of Week Place Situation Language Function Ability No Deficits Noted Safety Awareness Understands Safety Issues Memory Description No Deficits Noted Gross Range of Motion Lower Extremity ROM Assessment Within Functional Limits Strength Lower Extremity Strength Assessment Bilaterally Impaired Comments Strength Comments RLE 3+/5 LLE 4-/5 Coordination Assessment Gross Coordination Gross Coordination WNL Sensation Assessment Sensation Gross Sensation Right LE Impaired Sensation Description Numbness Comments Sensation Comments c/o numbness on R 4th/5th toes : stated that numbness is chronic Muscle Tone Muscle Tone WNL Yes M6 PT-IP Treatment Start: 08/03/18 12:00 Freq: NEEDED Status: Active Protocol: Document 08/04/18 12:10 SA (Rec: 08/04/18 12:20 SA [email or web address]) Physical Therapy Treatment Education Education Provided Precautions Post-Op Packet Safety M7 PT-IP Assessment and Plan Start: 08/03/18 12:00 Freq: NEEDED Status: Active Protocol: Document 08/04/18 12:10 SA (Rec: 08/04/18 12:20 [email or web address]) PT Summary Assessment and Plan Potential Rehabilitation Potential Good Status of Condition at Evaluation Stable Summary Impairments Pain ROM Strength Balance Coordination Sensation Tone Cognition Bed Mobility Transfers Gait Activity Tolerance Assessment Summary Pt progressing well with mobility tasks, present for session and feels comfortable with upcoming d/c home this afternoon. Have FWW, elevated toilet seat and all needed equipment. Frequency of Treatment Frequency Of Treatment Twice a Day Treatment Plan Physical Therapy Treatment Plan Bed Mobility Training Transfer Training Gait Training Therapeutic Exercise Balance Retraining Post Op Education Discharge Planning Hot or Cold Pack Neuromuscular Re-ed Coordination Retraining Manual Therapy Recommendations To Nursing Amount of Assist Needed 1 Person Assist Discharge Recommendations PT Discharge Recommendations Home with Assistance
--- NOTE | 2018-08-04 14:41 | PC.NURSE ---
Discharge PIV removed prior to d/c. D/c instructions provided to pt and . dressing changed per MD order. aware to f/u with MD for post op apt as well as for any additional questions or concerns. pain controlled with oxy. pt states he took all belongings with him. Left in w/c with [employer] escort.
--- NOTE | 2018-08-18 09:15 | P.DS_ITS ---
History of Present Illness Date Patient Seen: 08/04/18 Chief complaint: [id number] Narrative: Hospital day 3, postop day 2 following L5-S1 laminotomy, TLIF, cage, ICBG and posterior screw fixation by Dr. Chao. Patient has remained stable postoperatively. Did have increased pain yesterday when epidural wore off. Pain controlled with medication. Progressed with PT. Ready for discharge home on postop day 2. Discharge Providers Date of admission: 08/02/18 08:34 Discharge Date: 08/04/18 Consults: 08/02/18 14:43 Consult to Occupational Therapy Evaluate & Treat Comment: Physician Instructions: Evaluate and treat Consult to Physical Therapy Evaluate & Treat Comment: Physician Instructions: Evaluate and Treat Discharge provider: Augusto Brasher PA-C Summary Discharge Diagnosis: Status post L5-S1 laminotomy, TLIF, cage, ICBG, posterior screw fixation Hospital Course: Patient brought to hospital on 08/02/2018 for above-noted surgery. Remained stable postoperatively. Progressed with physical therapy. Ready for discharge home on postop day 2. Status at Discharge Cognitive/behavioral status at discharge: oriented Functional status at discharge: uses cane/walker Overall status at discharge: patient is progressing back to baseline Time Spent with Patient Less than 30 minutes Exam Vital Signs (past 8 hours): Oxygen Delivery Method Room Air Oxygen Flow Rate 0 Narrative Exam Narrative: Alert, oriented no acute distress. Back. Dressing is dry without drainage or inflammation. Legs. No calf pain or swelling. Pulses symmetrical. Objective Labs Result Diagrams: 08/03/18 04:32 Discharge Plan Discharge Plan Patient Disposition: Home Discharge Med Rec/Prescriptions Prescriptions: New acetaminophen 325 mg Tablet 650 mg PO Q6HR PRN (Reason: Pain, Mild (1-3)) Qty: 60 RF: 0 docusate sodium [DOK] 100 mg Capsule 100 mg PO BID Qty: 60 RF: 0 hydroxyzine pamoate 25 mg Capsule 25 mg PO Q4HR PRN (Reason: Nausea And Vomiting) Qty: 40 RF: 0 oxycodone 5 mg Tablet 10 mg PO Q3HR PRN (Reason: Pain, Severe (7-10)) Qty: 60 RF: 0 Continued atorvastatin 40 mg Tablet 40 mg PO BEDTIME RF: 0 clonidine HCl 0.1 mg Tablet 0.1 mg PO BID RF: 0 meloxicam 15 mg Tablet 15 mg PO DAILY RF: 0 tamsulosin 0.4 mg Capsule 0.4 mg PO BEDTIME RF: 0 amlodipine 10 mg Tablet 10 mg PO BEDTIME RF: 0 ibuprofen 200 mg Tablet 600 mg PO BID-TID PRN (Reason: Pain) RF: 0 gabapentin 300 mg Capsule 300 mg PO TID RF: 0 zolpidem 10 mg Tablet 10 mg PO BEDTIME PRN (Reason: Sleep) RF: 0 albuterol sulfate 90 mcg/actuation Hfa Aerosol Inhaler 2 puff INHALATION QID PRN (Reason: Shortness Of Breath) RF: 0 losartan 100 mg Tablet 100 mg PO DAILY RF: 0 bupropion HCl 150 mg Tablet Extended Release 24 Hr 150 mg PO BID RF: 0 Symbicort 160-4.5 mcg/actuation Hfa Aerosol Inhaler 2 puff INHALATION PRN PRN (Reason: Shortness Of Breath) RF: 0 omeprazole 20 mg Tablet,Delayed Release (Dr/Ec) 40 mg PO BID RF: 0 alprazolam 0.25 mg Tablet 0.25 mg PO DAILY PRN (Reason: Anxiety) RF: 0 cholecalciferol (vitamin D3) [Vitamin D3] 5,000 unit Tablet 50,000 unit PO DAILY RF: 0 Discontinued hydrocodone-acetaminophen 5-325 mg Tablet 2 tab PO Q4-6H PRN (Reason: Pain) RF: 0 Follow up/Referrals: Jose Elias Kingsley MD [Physician] - Provider Discharge Instructions Diet: Diet as Tolerated Activity: No excessive bending, lifting, or twisting. No lifting or carrying more than 5-10 lb. Ambulate as tolerated. Skin/Wound/Dressing Care Report to your healthcare provider any signs of infection, such as:: chills, fe saad and increased pain Dressing: leave in place Visit Report/Discharge Packet Instructions: Oxycodone, Hydroxyzine, DI for Transforaminal Lumbar Interbody Fusion Visit Report Forms: Stroke Signs & Symptoms Discharge Data Attending Provider: Jose Elias Kingsley Admit Date/Time: 08/02/18 08:34 Discharges patient from system. Discharge Date/Time: 08/04/18 14:00 Quality VTE Deep Vein Thrombosis/Pulmonary Embolism Present on Admission: No
== END 2018-08-04 14:00 | disposition home or self-care (01) | DRG 455 ==
LOC: AC 11:30 → ICU 11:53 → AC 08-03 10:22
PROVIDERS: Admitting Provider Orthopaedic Surgery; Visit Provider Orthopaedic Surgery
PROC: 0SG30AJ Fusion of Lumbosacral Joint with Interbody Fusion Device, Posterior Approach, Anterior Column, Open Approach (ICD-10-PCS; principal; 2018-08-02 10:15)
DX: M48.07 Spinal stenosis, lumbosacral region (principal); M48.062 Spinal stenosis, lumbar region with neurogenic claudication; M54.16 Radiculopathy, lumbar region; M51.26 Other intervertebral disc displacement, lumbar region; M96.1 Postlaminectomy syndrome, not elsewhere classified; I10 Essential (primary) hypertension; G47.33 Obstructive sleep apnea (adult) (pediatric); X50.0XXD Overexertion from strenuous movement or load, subsequent encounter; E78.5 Hyperlipidemia, unspecified; F32.9 Major depressive disorder, single episode, unspecified; N40.0 Benign prostatic hyperplasia without lower urinary tract symptoms
CPT/HCPCS: 36415; 72100; 76000; 85014; 85018; 87797; 94762; 97116; 97161; 97165; 97530; 97535; C1776; J0330; J0595; J0690; J1170; J1200; J2250; J2274; J2405; J2704; J3010